=== PATIENT | female | born 1935 | race Caucasian/White ===

== ENCOUNTER 2018-11-25 14:02 | Outpatient (CLI) | payer MEDICARE, OTHER ==
--- NOTE | 2018-11-25 16:28 | BD ---
Exam: DEXA Bone Density 11/25/18 HISTORY: 80-year-old female with senile osteoporosis. COMPARISON: 03/04/16. Lumbar Spine: BMD (g/cm2) L1 0.672 T-Score: -2.9 L2 0.800 T-Score: -2.1 L3 0.671 T-Score: -3.8 L4 0.578 T-Score: -4.4 L1-L4 0.672 T-Score: -3.4 Evidence for osteoporosis with high risk of fracture with very slight improvement in the T-Score when compared to the prior study. Left Femoral Femoral Neck: 0.475 T-Score: -3.4 Total Femur: 0.685 T-Score: -2.1 Evidence for osteoporosis with high risk for fracture. Bone mineral density is slightly improved from the prior study. FRAX score not reported because some T-Score are at or below -2.5. Treated for osteoporosis. POS: OFF
== END 2018-11-25 14:03 | disposition home or self-care (01) ==
LOC: BICMAMMO 14:02
PROVIDERS: ATTEND Internal Medicine Rheumatology
DX: M81.0 Age-related osteoporosis without current pathological fracture (principal)
CPT/HCPCS: 77080

== ENCOUNTER 2019-04-23 15:01 | Observation (INO) | payer MEDICARE, OTHER ==
[2019-04-23] MEDS ORDERED: Meclizine HCl 25 MG TAB ONE (16:18)
[2019-04-23 16:20] LABS: Bilirubin Negative (Negative); Blood, Urine Negative (Negative); Clarity CLEAR (Clear); Glucose, Urine (Dipstick) Negative (Negative); Leukocyte Negative (Negative); Nitrite Negative (Negative); Protein, Urine (Dipstick) Negative (Neg-Trace); Specific Gravity, Urine 1.007 (1.002-1.036); Urobilinogen 0.2 mg/dL (0.2-1.0)
[2019-04-23 16:35] LABS: Hemoglobin 13.6 g/dL (12.0-16.0); Mean Corpuscular HGB CONC 34.8 g/dL (32.0-36.0); Mean Corpuscular Volume 97.6 fL (78.0-98.0); Mean Platelet Volume 8.3 fL (7.4-10.4); Platelet Count 179 thou/uL (130-400); RBC Distribution Width 12.4 % (11.5-14.5); Red Blood Cell (RBC) Count 4.02 mill/uL (4.20-5.40); White Blood Cell (WBC) Count 6.1 thou/uL (4.8-10.8)
--- NOTE | 2019-04-23 16:36 | RAD ---
FRONTAL VIEW CHEST: 04/23/19 CLINICAL HISTORY: Altered mental status. FINDINGS: There is mitral annular calcification. Cardiac silhouette is mildly enlarged and there is mild promin ence of the central pulmonary vasculature. Lungs are hyperinflated. Left dural lead cardiac pacing de vice is present. There is extrinsic artifact limiting detail. IMPRESSION: COPD. Findings indicate mild CHF. POS: [facility]
[2019-04-23 16:38] LABS: Band 6 % (5-11); Lymphocytes 12 % (21-51); MDiff Complete? YES; Monocytes 13 % (0-10); Neutrophil 66 % (42-75); Platelet Morphology Comment Appears Adequate; RBC Morphology Normal; Reactive Lymphocytes 1 % (0-10)
[2019-04-23 16:41] LABS: ALT (SGPT) 26 U/L (8-55); AST (SGOT) 34 U/L (5-34); Albumin 4.4 g/dL (3.4-4.8); Alkaline Phosphatase 58 U/L (40-150); Anion Gap 14 mmol/L (10-20); BUN (Urea Nitrogen) 13 mg/dL (9.8-20.1); Bilirubin, Total 1.2 mg/dL (0.2-1.2); Calc. Creatinine Clearance 0 mL/min (70-130); Calcium 10.4 mg/dL (7.8-10.44); Carbon Dioxide 25 mmol/L (23-31); Chloride 98 mmol/L (98-107); Estimated GFR-MDRD 81; Globulin 3.3 g/dL (2.4-3.5); Glucose 111 mg/dL (83-110); Potassium 3.9 mmol/L (3.5-5.1); Protein, Total 7.7 g/dL (6.0-8.3); Sodium 133 mmol/L (136-145)
--- NOTE | 2019-04-23 16:58 | CT ---
Head CT without contrast 04/23/2019: Comparison: None HISTORY: Altered mental status, dizziness TECHNIQUE: Axial CT imaging at 5 mm intervals from vertex through skull base without contrast FINDINGS: There is periventricular, deep, and subcortical white matter hypodensity, evidence of small vessel disease. The imaged paranasal sinuses and mastoid air cells are well aerated. There is no displaced calvarial fracture. No intracranial hemorrhage, midline shift, or mass effect. IMPRESSION: Evidence of small vessel disease. No intracranial hemorrhage.
[2019-04-23 17:01] LABS: CKMB 3.4 ng/mL (0-6.6)
[2019-04-23] MEDS ORDERED: Ondansetron PF 4 MG/2 ML Vial ONE (19:51)
[2019-04-23] MEDS ORDERED: Ondansetron ODT 4 MG TAB ONE (19:51)
[2019-04-23] MEDS ORDERED: Sodium Chloride 0.9% 1,000 ML IV SCH (21:37)
[2019-04-23] MEDS ORDERED: Aspirin 81 mg Enteric Coated Tablet PO SCH (22:00)
[2019-04-24 01:34] VITALS: BMI 24.3
[2019-04-24] MEDS ORDERED: Ondansetron PF 4 MG/2 ML Vial IVP PRN (01:44)
[2019-04-24] MEDS ORDERED: Acetaminophen 325 MG TAB PO PRN (01:44)
[2019-04-24] MEDS ORDERED: Ondansetron ODT 4 MG TAB PO PRN (01:44)
[2019-04-24] MEDS ORDERED: Meclizine HCl 12.5 MG TAB PO PRN (02:12)
[2019-04-24 03:07] LABS: #Lymphocytes 0.6 thou/uL (1.20-3.40); #Monocytes 0.8 thou/uL (0.11-0.59); #Neutrophils 4.5 thou/uL (1.40-6.50); %Basophils 0.4 % (0.0-1.0); %Eosinophils 0.1 % (0.0-10.0); %Lymphocytes 10.1 % (21.0-51.0); %Monocytes 13.7 % (0.0-10.0); %Neutrophils 75.6 % (42.0-75.0); Hemoglobin 12.2 g/dL (12.0-16.0); Mean Corpuscular HGB CONC 33.9 g/dL (32.0-36.0); Mean Corpuscular Hemoglobin 33.3 pg (27.0-31.0); Mean Corpuscular Volume 98.1 fL (78.0-98.0); Mean Platelet Volume 8.3 fL (7.4-10.4); Platelet Count 143 thou/uL (130-400); RBC Distribution Width 12.3 % (11.5-14.5); Red Blood Cell (RBC) Count 3.66 mill/uL (4.20-5.40)
[2019-04-24 03:31] LABS: Troponin I 0.218 ng/mL (< 0.028)
[2019-04-24 03:32] LABS: Anion Gap 12 mmol/L (10-20); BUN (Urea Nitrogen) 15 mg/dL (9.8-20.1); Calc. Creatinine Clearance 51 mL/min (70-130); Calcium 9.9 mg/dL (7.8-10.44); Carbon Dioxide 27 mmol/L (23-31); Cardiac Risk 2.6 (Less than 4.5); Chloride 97 mmol/L (98-107); Cholesterol 281 mg/dl (< 200 Desired); Estimated GFR-MDRD 72; Glucose 140 mg/dL (83-110); HDL Cholesterol 108 mg/dL (>60 Neg Risk); LDL Cholesterol, Calculated 163 mg/dL; Potassium 3.8 mmol/L (3.5-5.1); Sodium 132 mmol/L (136-145); Triglycerides 49 mg/dL (Less than 150)
--- NOTE | 2019-04-24 05:38 | HP ---
PRIMARY CARE PHYSICIAN: [facility]. CHIEF COMPLAINT: Slurred speech, confusion, and dizziness. HISTORY OF PRESENT ILLNESS: Ms. Colon is an 83-year-old female, with past medical history of hypertension and rheumatoid arthritis, who had presented to [facility] earlier today after she experienced an episode of acute confusion, slurred speech, and dizziness when she was at her hairdresser's getting her hair done earlier today. She was quite confused and had acute amnesia, this had only lasted for a few moments. She had denied any fever, chills, any headache or blurred vision. She denied any chest pain, palpitations, shortness of breath, abdominal pain, or change in her stool. She had reported when she felt dizzy, she became nauseous and had vomited twice, but this had resolved prior to arriving. Her initial workup included a brain CT without contrast, which showed evidence of small vessel disease; however, no intracranial hemorrhage was noted. Portable chest x-ray showed signs and symptoms of COPD and findings for mild CHF. The patient's lab work showed a slightly low sodium of 133, an indeterminate troponin of 0.031; however, the patient declined any symptoms of chest pain or shortness of breath or palpitations. The patient noted to have a pacemaker in place, which will be interrogated and currently pending. The patient was transferred up to the stroke floor for further observation and workup and management of her symptoms. REVIEW OF SYSTEMS: All other systems were reviewed and found to be negative unless mentioned in the HPI. PAST MEDICAL HISTORY: Hypertension and rheumatoid arthritis. PAST SURGICAL HISTORY: Pacemaker implantation and mastectomy. SOCIAL HISTORY: The patient denies any alcohol, tobacco, or illicit drug use. KNOWN ALLERGIES: Sulfa. CURRENT HOME MEDICATIONS: 1. Lisinopril 2.5 mg daily. 2. Calcium carbonate/vitamin D3/vitamin K one tablet oral daily. 3. Rheumate 1 capsule p.o. daily. 4. Methotrexate 10 mg p.o. q.7 days. 5. Multivitamin 1 tablet oral daily. 6. Metoprolol 12.5 mg p.o. daily. PHYSICAL EXAMINATION: VITAL SIGNS: BP 166/73, pulse 63, respirations 16, O2 saturation 98% on room air, temperature 98.3 degrees Fahrenheit. GENERAL: The patient is awake, alert, and oriented x3. She is currently lying comfortably in bed and in no acute distress. Her son is at bedside. HEENT: Atraumatic, normocephalic. Pupils are round and reactive to light. Extraocular muscles are intact. Moist mucous membranes noted. NECK: Soft and supple. Trachea midline. CARDIOVASCULAR: Positive S1 and S2. Regular rate and rhythm. No murmur auscultated. RESPIRATORY: Clear to auscultation bilaterally. No wheezes, rales, or rhonchi. ABDOMEN: Soft, nontender. Bowel sounds present. MUSCULOSKELETAL: Strength 5+ bilaterally, upper and lower extremities. Moves all extremities equal. No edema noted. NEUROLOGIC: Cranial nerves 2 through 12 grossly intact. No focal deficits noted. Speech intact and normal. Gait, not assessed. SKIN: Warm, dry, and intact. No rashes. No ulceration noted. PSYCHIATRIC: Good mood and affect. LABORATORY DATA: WBC 6.1, RBC 4.02, hemoglobin 13.6, platelets 179. Sodium 133, potassium 3.9, anion gap 14, BUN 13, creatinine 0.69, estimated GFR 81, glucose 111. Troponin 0.031. Urinalysis was unremarkable. DIAGNOSTIC IMAGING: CT of brain without contrast showed evidence of small vessel disease with no intracranial hemorrhage, midline shift, or mass effect. Portable chest x-ray showed findings of mild CHF and COPD. ASSESSMENT AND PLAN: 1. Transient ischemic attack/cerebrovascular accident rule out, the patient will undergo workup in the morning, which includes MRI of brain without contrast, carotid ultrasound, and echocardiogram. She will be placed on aspirin 81 mg daily along with atorvastatin. TSH and lipid panel will be drawn in the morning. PT and OT will be ordered, and she will be placed on neuro checks along with monitored telemetry on stroke floor. 2. Hypertension. Continue the patient's home regimen of lisinopril and metoprolol, and monitor vital signs and blood pressures closely. Orthostatic vital signs will be checked. 3. Rheumatoid arthritis. Continue home regimen. 4. Slightly indeterminate troponin of 0.031, cardiac enzymes will be trended. 5. Deep venous thrombosis and gastrointestinal prophylaxis. 6. Code status is full code. 7. Surrogate decision maker is her son. DISPOSITION: Pending further workup and clinical findings. Job ID: [id number]
[2019-04-24] MEDS ORDERED: Aspirin 81 mg Enteric Coated Tablet PO SCH (09:00)
--- NOTE | 2019-04-24 09:35 | ULT ---
BILATERAL CAROTID DUPLEX ULTRASOUND: HISTORY: TIA. TECHNIQUE: Meneses scale, color flow, and spectral Doppler imaging of the external carotid artery systems is perfor med bilaterally. FINDINGS: No significant plaque formation or interval wall thickening is seen. The peak systolic velocity in the right ICA measures 58 cm/s with an end-diastolic velocity of 12 cm/ s and a systolic ratio of 1.0. The peak systolic velocity in the left ICA measures 54 cm/s with an end-diastolic velocity of 13 cm/s and a systolic ratio of 0.7. Flow in both vertebral arteries remains antegrade. IMPRESSION: No evidence of hemodynamically significant stenosis. POS: [facility]
--- NOTE | 2019-04-24 11:33 | MRI ---
MRI OF THE BRAIN WITHOUT CONTRAST: COMPARISON: None. HISTORY: CVA/TIA. The patient has an MRI-safe pacemaker which was placed on safe mode by the [facility]. TECHNIQUE: Multiplanar, multisequence MR images were obtained of the brain without contrast. FINDINGS: There are scattered foci of high T2/FLAIR signal in the subcortical and periventricular white matter, likely secondary to small-vessel ischemic disease. No large confluent infarction is seen. No restr icted diffusion is seen to suggest an acute infarction. There is no evidence of hydrocephalus, intracranial hemorrhage, or extraaxial fluid collection. The expected flow voids are present. The corpus callosum, pituitary, and craniocervical junction are unr emarkable. The calvarium and overlying soft tissues are unremarkable. The paranasal sinuses and mastoid air peri ls are well aerated. IMPRESSION: Small-vessel ischemic disease without acute intracranial abnormality. POS: [facility]
[2019-04-24] MEDS ORDERED: Sodium Chloride 0.9% 250 ML 250 ML IVPB SCH (15:00)
[2019-04-24 16:11] VITALS: TEMP 97.9
[2019-04-24 16:17] VITALS: BP 149/81
[2019-04-24] MEDS ORDERED: Atorvastatin Calcium 40 MG TAB PO SCH (21:00)
[2019-04-24] MEDS ORDERED: Lisinopril 2.5 MG TAB PO SCH (21:00)
== END 2019-04-24 17:56 | disposition home or self-care (01) ==
LOC: ERS 15:01 → 2SE 21:21
PROVIDERS: ADMIT Family Medicine; ATTEND Family Medicine
DX: R42 Dizziness and giddiness (principal); R41.82 Altered mental status, unspecified; R47.81 Slurred speech; I11.0 Hypertensive heart disease with heart failure; I50.9 Heart failure, unspecified; M06.9 Rheumatoid arthritis, unspecified; Z79.51 Long term (current) use of inhaled steroids; Z79.899 Other long term (current) drug therapy; Z88.2 Allergy status to sulfonamides; Z95.0 Presence of cardiac pacemaker
CPT/HCPCS: 70450; 70551; 71045; 80048; 80053; 80061; 81003; 82553; 83880; 84443; 84484 ×2; 85025 ×2; 93005; 93306; 93880; 96360; 96361 ×2; 97116; 97139 ×4; 97530; 99285; G0378 ×2; 36415; J2405; J8499; J8597; Q0162

== ENCOUNTER 2020-08-17 17:58 | Emergency (ER) | payer MEDICARE, OTHER ==
[2020-08-17 19:40] LABS: Hemoglobin 11.5 g/dL (12.0-16.0); Mean Corpuscular HGB CONC 33.8 g/dL (32.0-36.0); Mean Corpuscular Hemoglobin 32.3 pg (27.0-31.0); Mean Corpuscular Volume 95.7 fL (78.0-98.0); Platelet Count 148 thou/uL (130-400); RBC Distribution Width 11.8 % (11.5-14.5); Red Blood Cell (RBC) Count 3.56 mill/uL (4.20-5.40); White Blood Cell (WBC) Count 4.8 thou/uL (4.8-10.8)
[2020-08-17 19:55] LABS: ALT (SGPT) 16 U/L (8-55); AST (SGOT) 28 U/L (5-34); Albumin 3.5 g/dL (3.4-4.8); Alkaline Phosphatase 83 U/L (40-110); Anion Gap 11 mmol/L (10-20); BUN (Urea Nitrogen) 17 mg/dL (9.8-20.1); Bilirubin, Total 0.8 mg/dL (0.2-1.2); Calc. Creatinine Clearance 0 mL/min (70-130); Carbon Dioxide 28 mmol/L (23-31); Chloride 100 mmol/L (98-107); Estimated GFR-MDRD 70; Globulin 3.2 g/dL (2.4-3.5); Glucose 94 mg/dL (83-110); Potassium 3.6 mmol/L (3.5-5.1); Protein, Total 6.7 g/dL (6.0-8.3); Sodium 135 mmol/L (136-145)
[2020-08-17 20:12] LABS: Band 6 % (5-11); Eosinophils 3 % (0-10); Lymphocytes 21 % (21-51); MDiff Complete? YES; Monocytes 1 % (0-10); Neutrophil 69 % (42-75)
--- NOTE | 2020-08-17 21:17 | ULT ---
Exam:Leftlower extremity venous ultrasound with Doppler HISTORY: Leftlower extremity pain, edema and erythema. COMPARISON: None TECHNIQUE: Grayscale, color flow, Doppler imaging and spectral wave muscle performed LEFT lower extre mity venous system FINDINGS: There is compressibility, presence of flow and augmentation in the common femoral vein, femoral vein and popliteal vein. There is flow in the posterior tibial vein. There is flow in the greater saphenous vein and profunda femoral vein. There is soft tissue edema. IMPRESSION: No thrombus in the left lower extremity deep venous system. There is soft tissue edema.
== END 2020-08-17 20:30 | disposition home or self-care (01) ==
LOC: ERS 17:58
DX: L03.116 Cellulitis of left lower limb (principal); I10 Essential (primary) hypertension; Z79.899 Other long term (current) drug therapy
CPT/HCPCS: 80053; 85025; 93005; 94760

== ENCOUNTER 2020-08-20 08:45 | Inpatient (IN) | payer MEDICARE, OTHER ==
[2020-08-20] MEDS ORDERED: Vancomycin 1 GM/200 ML BAG ONE (09:27)
[2020-08-20 09:36] LABS: Band 4 % (5-11); Eosinophils 5 % (0-10); Hemoglobin 11.3 g/dL (12.0-16.0); Lymphocytes 23 % (21-51); MDiff Complete? YES; Mean Corpuscular HGB CONC 32.6 g/dL (32.0-36.0); Mean Corpuscular Hemoglobin 31.2 pg (27.0-31.0); Mean Corpuscular Volume 95.9 fL (78.0-98.0); Mean Platelet Volume 8.8 fL (7.4-10.4); Monocytes 8 % (0-10); Neutrophil 60 % (42-75); Platelet Count 153 thou/uL (130-400); RBC Distribution Width 11.8 % (11.5-14.5); Red Blood Cell (RBC) Count 3.63 mill/uL (4.20-5.40); White Blood Cell (WBC) Count 4.6 thou/uL (4.8-10.8)
[2020-08-20 09:38] LABS: Anion Gap 11 mmol/L (10-20); BUN (Urea Nitrogen) 10 mg/dL (9.8-20.1); Calc. Creatinine Clearance 0 mL/min (70-130); Calcium 8.8 mg/dL (7.8-10.44); Carbon Dioxide 25 mmol/L (23-31); Chloride 102 mmol/L (98-107); Estimated GFR-MDRD Greater than 90; Glucose 87 mg/dL (83-110); Sodium 134 mmol/L (136-145)
--- NOTE | 2020-08-20 10:57 | PDOC.HHP ---
Hospitalist HPI - History of Present Illness Left lower extremity cellulitis History of Present Illness: PCP: Ruddy Ruiz ([facility]) The patient is an 85-year-old female with past medical history significant for hypertension that presents to the emergency department for worsening cellulitis to the left lower extremity. The patient reports that approximately 3 to 5 days ago, she developed redness to her left lower extremity. She denies any known trauma. Either way, she was started on oral clindamycin. She reports that she has been taking for the past 3 to 5 days as prescribed. This morning, she noti chelsy that the extremity became "really red". She reports some mild pain. Denies any abdominal pain, nausea, vomiting, diarrhea. Denies any fever or chills. She denies any lightheadedness, chest pain or shortness of breath. She has no other complaints at this time. ED Course: VITAL SIGNS [place] Aug 20, 2020 08:47 CHRISTINA iDmas Cory BP: 171/77, Pulse: 64, Resp: 14, Temp: 98.9 (Oral), Pain: 0, O2 sat: 99 on (Room Air), Time: 08/20/2020 08:47. VITAL SIGNS [place] Aug 20, 2020 10:22 CHRISTINA Caro, Jesu BP: 160/72, MAP: 101, Pulse: 62, Resp: 17, O2 sat: 99 on (Room Air), Time: 08/20/2020 10:22. Medication administration: vancomycin intravenous 1 g IV Piggy Back Given 09:38 08/20/2020 Normal Saline 500 mL IV Fluid Infusion Given 09:37 08/20/2020 Hospitalist ROS - Review of Systems Constitutional: denies: fever, chills Respiratory: denies: cough, shortness of breath Cardiovascular: denies: chest pain, palpitations Genitourinary: denies: dysuria Neurological: denies: weakness, change in speech All other systems reviewed; all pertinent +/- noted in HPI/Subj - Medication Medications: metoprolol succinate TABLET, EXTENDED RELEASE 24 HR : Strength - 100 mg : ORAL Patient Dose: 12.5 mg Oral once a day. clindamycin HCl 150 mg : Strength - capsule : ORAL Patient Dose: 450 mg Oral 3 times a day. Allergies: Bactrim, sulfamethoxazole (Unconfirmed), trimethoprim (Unconfirmed) Hospitalist History - Past Medical History Source: patient, RN notes reviewed Cardiac: reports: HTN, Other (Possible irregular heartbeat, requiring pacemaker) - Past Surgical History Past Surgical History: reports: Mastectomy (Bilateral), Other (Pacemaker) - Family History Other Family History: Noncontributory to this case - Social History Smoking Status: Never smoker Alcohol: reports: None Drugs: reports: none Living Situation: With Family Occupation: Retired Activity level: uses cane/walker - Exam General Appearance: NAD, awake alert. negative: ill appearing General - other findings: Appears comfortable Eye: anicteric sclera ENT: normocephalic atraumatic Neck: supple, symmetric Heart: RRR, no murmur, no gallops, no rubs, normal peripheral pulses Respiratory: CTAB, no wheezes, no rales, no ronchi, normal chest expansion, no tachypnea Gastrointestinal: soft, non-tender, normal bowel sounds, no guarding, no rigidity Extremities - other findings: LLE erythema chawla, circumferential, mild streaking medial chawla to knee Neurological: no focal deficits Psychiatric: normal affect, A&O x 3 Hospitalist Results - Labs Result Diagrams: 08/20/20 09:12 08/20/20 09:12 Lab results: WBC 4.6 thou/uL (4.8-10.8) L 08/20/20 09:12 Hgb 11.3 g/dL (12.0-16.0) L 08/20/20 09:12 Hct 34.8 % (36.0-47.0) L 08/20/20 09:12 MCV 95.9 fL (78.0-98.0) 08/20/20 09:12 Plt Count 153 thou/uL (130-400) 08/20/20 09:12 Band Neuts % (Manual) 4 % (5-11) L 08/20/20 09:12 ESR Westergren 46 mm/hr (Less than 30) H 08/20/20 09:12 Sodium 134 mmol/L (136-145) L 08/20/20 09:12 Potassium 4.0 mmol/L (3.5-5.1) 08/20/20 09:12 Chloride 102 mmol/L (98-107) 08/20/20 09:12 Carbon Dioxide 25 mmol/L (23-31) 08/20/20 09:12 BUN 10 mg/dL (9.8-20.1) 08/20/20 09:12 Creatinine 0.61 mg/dL (0.6-1.1) 08/20/20 09:12 Glucose 87 mg/dL (83-110) 08/20/20 09:12 Lactic Acid 0.6 mmol/L (0.5-2.2) 08/20/20 09:36 Calcium 8.8 mg/dL (7.8-10.44) 08/20/20 09:12 C-Reactive Protein 0.94 mg/dL (= or < 0.5) H 08/20/20 09:12 Hospitalist H&P A/P - Problem (1) Cellulitis of left lower extremity Code(s): L03.116 - CELLULITIS OF LEFT LOWER LIMB Status: Acute (2) Hypertension Code(s): I10 - ESSENTIAL (PRIMARY) HYPERTENSION Status: Chronic - Plan Plan: 85/F with PMH HTN presents for worsening L LE cellulitis on oral clindamycin outpatient. Admit to medical floor, inpatient status. Expected length of stay greater than 2 midnights. Presented hypertensive with an NL HR, RR, SPO2, afebrile. WBC 4.6, CRP 0.94, ESR 46 Given vancomycin and 1L NS in ER. #Cellulitis of left lower extremity Appears localized at this time. Start cefazolin IVPB. Recheck CBC in a.m. #Hypertension Takes home dose metoprolol succinate 12.5 mg daily. Restart home dose. Monitor BP. Lovenox for DVT prophylaxis. No GI prophylaxis. Full code. Kylee (niece) has been contacted in ED and will contact her son William to update the patient status. Discussed the case with Dr. Jenkins.
[2020-08-20] MEDS ORDERED: Acetaminophen 325 MG TAB PO PRN (11:25)
[2020-08-20] MEDS ORDERED: Ondansetron ODT 4 MG TAB PO PRN (11:25)
[2020-08-20 13:21] VITALS: BMI 18.5
[2020-08-20] MEDS: ceFAZolin 1 GM/D5W 1 GM in Premix Bag 1 BAG IVPB SCH ×2 (13:45→20:28)
[2020-08-20 16:15] LABS: SARS-CoV-2 MS2 Positive; SARS-CoV-2 N Gene Negative; SARS-CoV-2 S Gene Negative; SARS-CoV-2 by NAA Not Detected (NotDetected); SARS-CoV-2 orf1ab Negative
[2020-08-21] MEDS: ceFAZolin 1 GM/D5W 1 GM in Premix Bag 1 BAG IVPB SCH ×3 (05:43→21:39)
[2020-08-21 06:39] LABS: Anion Gap 11 mmol/L (10-20); BUN (Urea Nitrogen) 11 mg/dL (9.8-20.1); Calc. Creatinine Clearance 46 mL/min (70-130); Calcium 8.5 mg/dL (7.8-10.44); Carbon Dioxide 25 mmol/L (23-31); Chloride 102 mmol/L (98-107); Estimated GFR-MDRD Greater than 90; Glucose 82 mg/dL (83-110); Potassium 3.8 mmol/L (3.5-5.1); Sodium 134 mmol/L (136-145)
[2020-08-21] MEDS ORDERED: Loratadine 10 MG TAB PO PRN (06:40)
[2020-08-21] MEDS: Enoxaparin Sodium 30 MG/0.3 ML SYRINGE SC SCH ×2 (08:10→08:34)
[2020-08-21 08:18] LABS: Band 1 % (5-11); Eosinophils 5 % (0-10); Hemoglobin 10.8 g/dL (12.0-16.0); Lymphocytes 9 % (21-51); MDiff Complete? YES; Mean Corpuscular HGB CONC 33.7 g/dL (32.0-36.0); Mean Corpuscular Hemoglobin 32.2 pg (27.0-31.0); Mean Corpuscular Volume 95.7 fL (78.0-98.0); Mean Platelet Volume 8.9 fL (7.4-10.4); Monocytes 19 % (0-10); Neutrophil 65 % (42-75); Platelet Count 147 thou/uL (130-400); Platelet Morphology Comment Appears Adequate; RBC Distribution Width 11.8 % (11.5-14.5); RBC Morphology Normal; Red Blood Cell (RBC) Count 3.35 mill/uL (4.20-5.40); White Blood Cell (WBC) Count 3.9 thou/uL (4.8-10.8)
[2020-08-21] MEDS: Saccharomyces boulardii 250 MG CAP PO SCH (08:35)
--- NOTE | 2020-08-21 09:01 | PDOC.HOSPP ---
- Subjective Encounter Date: 08/21/20 Encounter Time: 08:55 Subjective: 85F with hx of HTN admitted for LLE cellulitis after failed outpatient abx. No overnight events. Patient examined at the bedside by me for the first time. Chart and medications reviewed. Pt endorses mild pain to LLE. Reports her leg appears less red. Denies chest pain, SOB, abdominal pain. Denies fever, chills, night-sweats. - Objective Vital Signs & Weight: Vital Signs (12 hours) Temp Pulse Resp BP BP Pulse Ox 08/21/20 07:16 98.1 F 74 20 138/69 93 L 08/21/20 04:00 97.9 F 80 20 145/63 H 92 L 08/21/20 00:00 97.7 F 83 18 154/66 H 94 L Weight Weight 94 lb 12.78 oz I&O: 08/20/20 08/21/20 08/22/20 06:59 06:59 06:59 Intake Total 1200 Balance 1200 Result Diagrams: 08/21/20 05:52 08/21/20 05:52 Hospitalist ROS - Review of Systems Constitutional: denies: fever, chills, sweats, weakness, malaise, other Eyes: denies: vision change Respiratory: denies: cough, shortness of breath, SOB with excertion Cardiovascular: denies: chest pain Gastrointestinal: denies: nausea, vomiting, abdominal pain, diarrhea Genitourinary: denies: dysuria Skin: reports: rash Neurological: denies: weakness, numbness - Medication Medications: Active Medications Generic Name Dose Route Start Last Admin Trade Name Jerrodq PRN Reason Stop Dose Admin Enoxaparin Sodium 30 mg 08/21/20 09:00 08/21/20 08:34 Enoxaparin Sodium 30 Mg/0.3 Ml Syringe SC 30 mg 0900 [place] Administration Cefazolin Sodium/Dextrose 1 gm 50 mls @ 200 mls/hr 08/20/20 14:00 08/21/20 05:43 / Device IVPB 50 mls Q8HR [place] Administration Metoprolol Succinate 12.5 mg 08/21/20 09:00 08/21/20 08:36 Metoprolol Succinate Xl 25 Mg Tab PO 12.5 mg DAILY [place] Administration Saccharomyces Boulardii 250 mg 08/21/20 09:00 08/21/20 08:35 Saccharomyces Boulardii 250 Mg Cap PO 250 mg DAILY [place] Administration - Exam General Appearance: NAD, awake alert Eye: anicteric sclera ENT: normocephalic atraumatic, dry oral mucosa Neck: supple, symmetric, no JVD Heart: RRR, no murmur, no gallops, no rubs, normal peripheral pulses Respiratory: CTAB, no wheezes, no rales, no ronchi, normal chest expansion, no tachypnea, normal percussion Gastrointestinal: soft, non-tender, non-distended, normal bowel sounds, no palpable masses, no hepatomegaly, no splenomegaly, no bruit Extremities: no cyanosis, no clubbing Extremities - other findings: Mild 1+ LLE edema Skin - other findings: LLE erythema and induration, with decreasing borders Neurological: no weakness, no focal deficits Musculoskeletal: normal tone, normal strength Psychiatric: normal affect, normal behavior, A&O x 3 Hosp A/P - Plan 85/F with PMH HTN presents for worsening L LE cellulitis failed oral clindamycin outpatient. Presented hypertensive to 154/56 with nl HR, RR, SPO2, afebrile. WBC 4.6, CRP 0.94, ESR 46 Given vancomycin and 1L NS in ER. #Cellulitis of left lower extremity Received vancomycin in ED transitioned to Cefazolin 1g TID. Pt afebrile in NSR with no leukocytosis. Lactic acid 0.6. WBC on 4.6, 3.9 this am. Mild improvement with erythema decreasing from outlined area. Neurovascularly intact. -Continue IV Cefazolin 1 g TID -Trend WBC, fever curve -Follow blood cx #Hypertension Takes home dose metoprolol succinate 12.5 mg daily. Continue home dose Monitor BP. Lovenox for DVT prophylaxis. Full code. Case discussed with attending physician, Dr. Jenkins.
[2020-08-22] MEDS: ceFAZolin 1 GM/D5W 1 GM in Premix Bag 1 BAG IVPB SCH ×3 (06:06→22:07)
[2020-08-22 06:44] LABS: Hemoglobin 10.7 g/dL (12.0-16.0); Mean Corpuscular HGB CONC 32.8 g/dL (32.0-36.0); Mean Corpuscular Hemoglobin 31.4 pg (27.0-31.0); Mean Corpuscular Volume 95.8 fL (78.0-98.0); Mean Platelet Volume 8.9 fL (7.4-10.4); Platelet Count 160 thou/uL (130-400); RBC Distribution Width 11.8 % (11.5-14.5); Red Blood Cell (RBC) Count 3.41 mill/uL (4.20-5.40); White Blood Cell (WBC) Count 3.6 thou/uL (4.8-10.8)
[2020-08-22 06:46] LABS: Anion Gap 11 mmol/L (10-20); BUN (Urea Nitrogen) 11 mg/dL (9.8-20.1); Calc. Creatinine Clearance 47 mL/min (70-130); Calcium 8.4 mg/dL (7.8-10.44); Carbon Dioxide 26 mmol/L (23-31); Chloride 104 mmol/L (98-107); Estimated GFR-MDRD Greater than 90; Glucose 94 mg/dL (83-110); Potassium 3.6 mmol/L (3.5-5.1); Sodium 137 mmol/L (136-145)
[2020-08-22 06:47] LABS: Band 2 % (5-11); Eosinophils 7 % (0-10); Lymphocytes 19 % (21-51); MDiff Complete? YES; Monocytes 13 % (0-10); Neutrophil 59 % (42-75)
[2020-08-22] MEDS: Saccharomyces boulardii 250 MG CAP PO SCH (08:55)
[2020-08-22] MEDS: Enoxaparin Sodium 30 MG/0.3 ML SYRINGE SC SCH (08:58)
--- NOTE | 2020-08-22 09:48 | PDOC.HOSPP ---
- Subjective Encounter Date: 08/22/20 Encounter Time: 09:46 Subjective: No overnight events. Patient resting comfortably in bed with right lower extremity elevated. Endorses mild tenderness to the leg but no other complaints. Denies chest pain, shortness of breath, abdominal pain. Denies nausea/vomiting/diarrhea. Chart and medications reviewed. - Objective Vital Signs & Weight: Vital Signs (12 hours) Temp Pulse Resp BP BP Pulse Ox 08/22/20 07:19 97.7 F 63 20 133/78 94 L 08/22/20 03:46 98.1 F 68 16 145/64 H 94 L Weight Admit Weight 94 lb 12.8 oz Weight 94 lb 12.78 oz I&O: 08/21/20 08/22/20 08/23/20 06:59 06:59 06:59 Intake Total 1200 1145 Balance 1200 1145 Result Diagrams: 08/22/20 05:55 08/22/20 05:55 Hospitalist ROS - Review of Systems Constitutional: denies: fever, sweats Eyes: reports: pain. denies: vision change Respiratory: denies: cough, shortness of breath Cardiovascular: denies: chest pain, palpitations Gastrointestinal: denies: nausea, vomiting, abdominal pain, diarrhea Genitourinary: denies: dysuria Musculoskeletal: reports: leg pain Skin: reports: rash Neurological: denies: weakness, numbness - Medication Medications: Active Medications Generic Name Dose Route Start Last Admin Trade Name Freq PRN Reason Stop Dose Admin Enoxaparin Sodium 30 mg 08/21/20 09:00 08/22/20 08:58 Enoxaparin Sodium 30 Mg/0.3 Ml Syringe SC Not Given 09 [place] Cefazolin Sodium/Dextrose 1 gm 50 mls @ 200 mls/hr 08/20/20 14:00 08/22/20 06:06 / Device IVPB 50 mls Q8HR [place] Administration Metoprolol Succinate 12.5 mg 08/21/20 09:00 08/22/20 08:54 Metoprolol Succinate Xl 25 Mg Tab PO 12.5 mg DAILY [place] Administration Saccharomyces Boulardii 250 mg 08/21/20 09:00 08/22/20 08:55 Saccharomyces Boulardii 250 Mg Cap PO Not Given DAILY [place] - Exam General Appearance: NAD, awake alert Eye: anicteric sclera ENT: normocephalic atraumatic Neck: supple, symmetric, no JVD Heart: RRR, no murmur, no gallops, no rubs, normal peripheral pulses Respiratory: CTAB, no wheezes, no rales, no ronchi, normal chest expansion, no tachypnea, normal percussion Gastrointestinal: soft, non-tender, non-distended, normal bowel sounds, no palpable masses, no hepatomegaly, no splenomegaly, no bruit Extremities - other findings: Receding erythema and induration to right lower extremity Skin: normal turgor Neurological: normal sensation to touch, no weakness, no focal deficits Musculoskeletal: normal tone, normal strength Psychiatric: normal affect, normal behavior, A&O x 3 Hosp A/P - Plan 85/F with PMH HTN presents for worsening L LE cellulitis failed oral clindamycin outpatient. Presented hypertensive to 154/56 with nl HR, RR, SPO2, afebrile. WBC 4.6, CRP 0.94, ESR 46 Given vancomycin and 1L NS in ER. #Cellulitis of left lower extremity Received vancomycin in ED transitioned to Cefazolin 1g TID. Pt afebrile in NSR with no leukocytosis. Lactic acid 0.6. WBC on 4.6, 3.9 this am. Mild improvement with erythema decreasing from outlined area. Neurovascularly intact. -Continue IV Cefazolin 1 g TID -Trend WBC, fever curve -Follow blood cx -Probiotics #Hypertension Takes home dose metoprolol succinate 12.5 mg daily. Continue home dose Monitor BP. Lovenox for DVT prophylaxis. Full code. Case discussed with attending physician, Dr. Jenkins.
[2020-08-23] MEDS: ceFAZolin 1 GM/D5W 1 GM in Premix Bag 1 BAG IVPB SCH ×3 (05:44→21:03)
[2020-08-23 06:50] LABS: Anion Gap 10 mmol/L (10-20); BUN (Urea Nitrogen) 10 mg/dL (9.8-20.1); Calc. Creatinine Clearance 46 mL/min (70-130); Calcium 8.6 mg/dL (7.8-10.44); Carbon Dioxide 28 mmol/L (23-31); Chloride 102 mmol/L (98-107); Estimated GFR-MDRD Greater than 90; Glucose 90 mg/dL (83-110); Potassium 3.5 mmol/L (3.5-5.1); Sodium 136 mmol/L (136-145)
[2020-08-23 06:59] LABS: Hemoglobin 11.6 g/dL (12.0-16.0); Mean Corpuscular HGB CONC 33.6 g/dL (32.0-36.0); Mean Corpuscular Hemoglobin 32.2 pg (27.0-31.0); Mean Corpuscular Volume 95.9 fL (78.0-98.0); Mean Platelet Volume 8.7 fL (7.4-10.4); Platelet Count 159 thou/uL (130-400); RBC Distribution Width 11.9 % (11.5-14.5); Red Blood Cell (RBC) Count 3.61 mill/uL (4.20-5.40); White Blood Cell (WBC) Count 4.1 thou/uL (4.8-10.8)
[2020-08-23 08:31] LABS: Elliptocytes SLIGHT = 2-5 cells (100X) (0-1/hpf); Eosinophils 5 % (0-10); Lymphocytes 11 % (21-51); MDiff Complete? YES; Monocytes 21 % (0-10); Neutrophil 62 % (42-75); Platelet Morphology Comment Appears Adequate
[2020-08-23] MEDS: Saccharomyces boulardii 250 MG CAP PO SCH (08:41)
[2020-08-23] MEDS: Enoxaparin Sodium 30 MG/0.3 ML SYRINGE SC SCH (09:00)
--- NOTE | 2020-08-23 12:33 | PQF ---
CLINICAL DOCUMENTATION CLARIFICATION FORM: Dear Dr. RAYMUNDO MODI Date: 08-23-20 Please exercise your independent, professional judgment in responding to the clarification form. Clinical indicators are provided on the bottom of this form for your review. Please check appropriate box(es): [ ] Protein Calorie Malnutrition: [ ] Mild [ x ] Moderate [ ] Severe [ ] Other Malnutrition (please specify) [ ] Other diagnosis [ ] Unable to determine In addition, please specify: Present on Admission (POA): [ x ] Yes [ ] No [ ] Unable to determine For continuity of documentation, please document condition throughout progress notes and discharge summary. Thank You. To be completed by CDI/Coding staff for physician review: CLINICAL INDICATORS - SIGNS / SYMPTOMS / LABS / RESULTS AND LOCATION IN MR: BMI 08-20-20: 18.5 [facility] 08-21-20: estimated 3-5# weight loss in past 2 months. Pt weighed 128.9# 04/23/20 during a previous admit. Noted mild temporalis, moderate interosseous muscle wasting, mild buccal fat pad wasting ; mild temporalis, moderate interosseous muscle wasting, mild buccal fat pad wasting, 27% weight loss x 16 months suggestive of moderate malnutrition in the context of chronic illness RISK FACTORS / RESULTS AND LOCATION IN MR: [facility] 08-21-20: estimated 3-5# weight loss in past 2 months. Pt weighed 128.9# 04/23/20 during a previous admit. TREATMENT / RESULTS AND LOCATION IN MR: [facility] 08-21-20: 1. Continue Heart Healthy diet. 2. May provide Ensure PRN, if meal intake drops below <50%. Moderate Malnutrition (in acute illness) Energy Intake: <75% of estimated energy requirement for > 7 days Weight Loss: 1-2%/1 week; 5%/ 1 month; 7.5%/3 months Other: mild body fat loss; mild muscle mass loss; mild fluid accumulation; Severe Malnutrition (in acute illness) Energy Intake: = 50% of estimated energy requirement for = 5 days Weight Loss: >2%/1 week; >5%/1 month; >7.5%/3 months Other: moderate body fat loss; moderate muscle mass loss; moderate- severe fluid accumulation; measurably reduced sausage smoker strength Moderate Malnutrition (in chronic illness) Energy Intake: <75% of estimated energy requirement for =1 month Weight Loss: 5%/1 month; 7.5%/3 months; 10%/6 months; 20%/1 year Other: mild body fat loss; mild muscle mass loss; mild fluid accumulation Severe Malnutrition (in chronic illness) Energy Intake: =75% of estimated energy requirement for =1 month Weight Loss: >5%/1 month; >7.5%/3 months; >10%/6 months; >20%/1 year Other: severe body fat loss; severe muscle mass loss; severe fluid accumulation; measurably reduced sausage smoker strength CDS Signature: Karly Mckinley Phone #: [phone] Date: 08-23-20 This is a permanent part of the Medical Record [facility]
[2020-08-23] MEDS ORDERED: Polyethylene Glycol 3350 17 GM Packet PO PRN (13:06)
--- NOTE | 2020-08-23 17:32 | PDOC.HOSPP ---
- Subjective Encounter Date: 08/23/20 Encounter Time: 11:30 Subjective: Patient seen and examined for cellulitis. Erythema and pain slowly improving. Denies any fever or chills. No nausea or vomiting reported. - Objective Vital Signs & Weight: Vital Signs (12 hours) Temp Pulse Resp BP Pulse Ox 08/23/20 15:00 98.0 F 71 20 162/74 H 97 08/23/20 11:10 97.9 F 69 20 147/64 H 97 08/23/20 08:44 95 08/23/20 07:37 98.1 F 67 16 150/68 H 95 Weight Admit Weight 94 lb 12.8 oz Weight 94 lb 12.78 oz I&O: 08/22/20 08/23/20 08/24/20 06:59 06:59 06:59 Intake Total 1145 720 Balance 1145 720 Result Diagrams: 08/23/20 05:56 08/23/20 05:56 Radiology Reviewed by me: No (Left lower extremity Doppler negative for DVT) Hospitalist ROS - Review of Systems Cardiovascular: denies: chest pain, palpitations, orthopnea, paroxysmal noc. dyspnea, edema, light headedness, other Gastrointestinal: denies: nausea, vomiting, abdominal pain, diarrhea, constipation, melena, hematochezia, other - Medication Medications: Active Medications Generic Name Dose Route Start Last Admin Trade Name Freq PRN Reason Stop Dose Admin Cefazolin Sodium/Dextrose 1 gm 50 mls @ 200 mls/hr 08/20/20 14:00 08/23/20 14:15 / Device IVPB 50 mls Q8HR [place] Administration Metoprolol Succinate 12.5 mg 08/21/20 09:00 08/23/20 08:41 Metoprolol Succinate Xl 25 Mg Tab PO 12.5 mg DAILY [place] Administration - Exam General Appearance: NAD Heart: RRR, no gallops Respiratory: no wheezes, no ronchi Gastrointestinal: non-tender, non-distended, normal bowel sounds Extremities: no cyanosis, no clubbing Extremities - other findings: Localized erythema/swelling in left lower extremityslowly improving Neurological: no new deficit Hosp A/P - Plan 85-year-old female with recent diagnosis of left lower extremity cellulitisfailed outpatient clindamycinpresents with worsening left lower extremity swelling and erythema. Initially started on vancomycin in the emergency roomlater transitioned to Ancef. #Left leg cellulitisfailed outpatient therapyerythema and swelling gradually improving. Some discomfort on ambulation We will continue Ancef. Monitor closely for worsening. Continue probiotics. Encouraged left leg elevation. #Hypertension Continue Toprol-XL #Moderate protein calorie malnutrition Add Ensure. Change diet to regular #Hyponatremia We will monitor #Chronic anemia suspected due to nutritional deficiency We will monitor #Leukopenia Will monitor #Elevated inflammatory markers secondary to cellulitis #DVT prophylaxiswith SCDs. Patient refusing Lovenox #Discharge planningprobably in 1 to 2 days. Will arrange for home health care.
[2020-08-23] MEDS: Senokot S 8.6-50 MG TAB PO SCH (21:00)
[2020-08-24] MEDS: ceFAZolin 1 GM/D5W 1 GM in Premix Bag 1 BAG IVPB SCH ×2 (05:46→13:19)
[2020-08-24] MEDS: Senokot S 8.6-50 MG TAB PO SCH (08:41)
[2020-08-24] MEDS ORDERED: Saccharomyces boulardii 250 MG CAP PO SCH (09:00)
[2020-08-24 22:17] VITALS: BP 160/84; TEMP 98
--- NOTE | 2020-08-28 12:38 | DIS ---
DATE OF ADMISSION: 08/20/2020 DATE OF DISCHARGE: 08/24/2020 DISCHARGE DISPOSITION: Home. FOLLOWUP: 1. Follow up with primary care physician, Dr. Kami Choi in 1 week. 2. Follow up with Infectious Disease, Dr. Dasilva. ALLERGIES: THE PATIENT IS ALLERGIC TO BACTRIM. DISCHARGE MEDICATIONS: 1. Keflex 500 mg every 8 hourly for 1 week. 2. The patient will also require chronic suppressive therapy with Penicillin-VK 250 mg b.i.d. for 6 months or so per Infectious Disease. Follow up with Infectious Disease in 1 to 2 weeks. The patient was seen and examined on the day of discharge. Denies any new complaints. No chest pain, shortness of breath, palpitations, fever, chills reported. Left lower extremity erythema is significantly improving. BRIEF HOSPITAL COURSE: The patient is an 85-year-old female who presented to the emergency room with erythema and tenderness of the left lower extremity. The patient was evaluated in the emergency room as outpatient and failed clindamycin. Please refer to the history and physical for further details. The patient was admitted to the hospital with a diagnosis of left leg cellulitis. Please note that the patient failed outpatient clindamycin therapy. She was placed on IV Unasyn with good response. Erythema and swelling have significantly improved. Antibiotics will be switched to Keflex. A compression stocking was recommended. The patient was also advised to follow up with primary care physician/Infectious Disease for possible chronic suppressive therapy with Penicillin-VK 250 mg b.i.d. for 6 months or so. She appears stable for discharge. FINAL DIAGNOSES: 1. Left leg cellulitis, improved. 2. Hypertension. 3. Moderate protein-calorie malnutrition. 4. Hyponatremia. 5. Chronic anemia probably due to nutritional deficiency. 6. Leukopenia, suspected chronic. 7. Elevated inflammatory markers. 8. Home Health Care has been arranged. 9. The patient and the family understand the above plan of care. Job ID: [id number]
== END 2020-08-24 22:08 | disposition home health service (06) | DRG 603 ==
LOC: ERS 08:45 → T4-A 10:00
PROVIDERS: ADMIT Student in an Organized Health Care Education/Training Program; ATTEND Student in an Organized Health Care Education/Training Program
DX: L03.116 Cellulitis of left lower limb (principal); E44.0 Moderate protein-calorie malnutrition; Z68.1 Body mass index [BMI] 19.9 or less, adult; E87.1 Hypo-osmolality and hyponatremia; Z20.828 Contact with and (suspected) exposure to other viral communicable diseases; I10 Essential (primary) hypertension; D72.819 Decreased white blood cell count, unspecified; D53.9 Nutritional anemia, unspecified; Z95.1 Presence of aortocoronary bypass graft; Z88.2 Allergy status to sulfonamides; Z88.8 Allergy status to other drugs, medicaments and biological substances; Z88.1 Allergy status to other antibiotic agents; Z79.899 Other long term (current) drug therapy
CPT/HCPCS: 36415; 80048; 80053; 83605; 85025; 85652; 86140; 87040; 87635; 93005; 94760; 96365; J0690; J1650; J3370; U0003

== ENCOUNTER 2020-09-09 17:56 | Emergency (ER) | payer MEDICARE, OTHER ==
[2020-09-09 19:02] LABS: #Eosinphils 0.4 thou/uL (0.0-0.7); #Lymphocytes 0.6 thou/uL (1.20-3.40); #Monocytes 0.6 thou/uL (0.11-0.59); #Neutrophils 2.7 thou/uL (1.40-6.50); %Basophils 0.5 % (0.0-1.0); %Eosinophils 9.7 % (0.0-10.0); %Lymphocytes 12.7 % (21.0-51.0); %Monocytes 14.7 % (0.0-10.0); %Neutrophils 62.4 % (42.0-75.0); Hemoglobin 13.3 g/dL (12.0-16.0); Mean Corpuscular HGB CONC 33.6 g/dL (32.0-36.0); Mean Corpuscular Hemoglobin 32.1 pg (27.0-31.0); Mean Corpuscular Volume 95.5 fL (78.0-98.0); Mean Platelet Volume 8.1 fL (7.4-10.4); Platelet Count 176 thou/uL (130-400); RBC Distribution Width 11.7 % (11.5-14.5); Red Blood Cell (RBC) Count 4.14 mill/uL (4.20-5.40); White Blood Cell (WBC) Count 4.4 thou/uL (4.8-10.8)
[2020-09-09 19:30] LABS: Bilirubin Negative (Negative); Blood, Urine Negative (Negative); Clarity Clear (Clear); Glucose, Urine (Dipstick) Normal (Negative); Ketone, Urine Negative (Negative); Leukocyte Negative Leu/uL (Negative); Nitrite Negative (Negative); Protein, Urine (Dipstick) Negative (Neg-Trace); Specific Gravity, Urine 1.006 (1.002-1.036); Urobilinogen Normal mg/dL (Less than 2)
[2020-09-09 20:12] LABS: Albumin 3.5 g/dL (3.4-4.8)
[2020-09-09 20:14] LABS: Calcium 8.7 mg/dL (7.8-10.44); Chloride 102 mmol/L (98-107); Potassium 3.9 mmol/L (3.5-5.1); Sodium 136 mmol/L (136-145)
[2020-09-09 20:15] LABS: Globulin 3.3 g/dL (2.4-3.5); Glucose 97 mg/dL (83-110); Protein, Total 6.8 g/dL (6.0-8.3)
[2020-09-09 20:16] LABS: Anion Gap 11 mmol/L (10-20); Carbon Dioxide 27 mmol/L (23-31)
[2020-09-09 20:17] LABS: Bilirubin, Total 0.6 mg/dL (0.2-1.2)
[2020-09-09 20:18] LABS: Alkaline Phosphatase 76 U/L (40-110)
[2020-09-09 20:19] LABS: BUN (Urea Nitrogen) 18 mg/dL (9.8-20.1); Calc. Creatinine Clearance 0 mL/min (70-130); Estimated GFR-MDRD 88
[2020-09-09 20:20] LABS: AST (SGOT) 25 U/L (5-34)
[2020-09-09 20:21] LABS: ALT (SGPT) 15 U/L (8-55)
== END 2020-09-09 21:08 | disposition home or self-care (01) ==
LOC: ERS 17:56
DX: E86.0 Dehydration (principal); I10 Essential (primary) hypertension
CPT/HCPCS: 36415; 36416; 80053; 81003; 84484; 85025; 87086; 93005